=== PATIENT | male | born 1960 | race Asian ===

== ENCOUNTER 2022-02-26 11:20 | Emergency (ER) | payer OTHER, SELFPAY ==
[2022-02-26 11:29] VITALS: BP 141/74; PULSE 80; RESP 18; TEMP 36.2; O2SAT 99; BMI 23.6
[2022-02-26 12:07] LABS: Add Manual Diff / Slide Review NO; Basophils Absolute Auto 0 /uL (0-100); Basophils Percent Auto 0.3 % (0-2); Eosinophils Absolute Auto 0 /uL (0-450); Eosinophils Percent Auto 0.3 % (2-4); Hematocrit 38.3 % (41-53); Hemoglobin 12.8 g/dL (13.5-17.5); Lymphocytes Absolute Auto 700 /uL (1100-4500); Lymphocytes Percent Auto 8.6 % (25-40); Mean Corpuscular HGB Conc 33.3 % (30-36); Mean Corpuscular Hemoglobin 26.6 PG (26-34); Monocytes Absolute Auto 900 /uL (0-900); Monocytes Percent Auto 11.8 % (3-14); Neutrophils Absolute Auto 6100 /uL (1500-7000); Platelet Count 198 X10^3/uL (150-400); Red Blood Cell Count 4.79 X10^6/uL (4.5-5.9); White Blood Cell Count 7.7 X10^3/uL (4.5-11.0)
[2022-02-26 12:18] LABS: Alanine Aminotransferase 20 IU/L (<50); Albumin 4.2 g/dL (3.5-5.0); Albumin Globulin Ratio 1.4 (1.0-2.8); Alkaline Phosphatase 56 U/L (38-126); Aspartate Aminotransferase 21 IU/L (17-59); BUN Creatinine Ratio 12.2 (6-22); Bilirubin Total 0.4 mg/dL (0.2-1.3); Blood Urea Nitrogen 11 mg/dL (9-20); Calcium 8.4 mg/dL (8.4-10.2); Carbon Dioxide 27 mmol/L (22-32); Chloride 97 mmol/L (98-107); Creatine Kinase 104 U/L (55-170); Estimated Glomerular Filt Rate > 60 mL/min (>60); Glucose 135 mg/dL (70-100); HEMOLYSIS < 15 (0-50); Lipase 58 U/L (23-300); Potassium 3.9 mmol/L (3.4-5.1); Sodium 133 mmol/L (137-145); Total Protein 7.2 g/dL (6.3-8.2)
[2022-02-26 12:30] LABS: Troponin I < 0.012 ng/mL (0.01-0.034)
--- NOTE | 2022-02-26 12:32 | DI.RAD.S_ITS ---
PROCEDURE: XR CHEST 1V INDICATIONS: covid positive TECHNIQUE: One view of the chest was acquired. COMPARISON: None. FINDINGS: Surgical changes and devices: None. Lungs and pleura: Lungs are clear. No pleural effusions or pneumothorax. Mediastinum: Mediastinal contours appear normal. Heart size is normal. Bones and chest wall: No suspicious bony lesions. Overlying soft tissues appear unremarkable. IMPRESSION: No acute cardiopulmonary disease. Dictated by: Melly Sidhu M.D. on 02/26/2022 at 14:28 Approved by: Melly Sidhu M.D. on 02/26/2022 at 14:28
[2022-02-26 12:33] LABS: CKMB % Relative Index 0.7 % (1.5-5.0); Creatine Kinase MB 0.75 ng/mL (<2.37)
[2022-02-26 13:26] VITALS: BP 112/71; PULSE 65; RESP 16; O2SAT 98
--- NOTE | 2022-02-26 13:58 | ED.CHESTPAIN ---
HPI - Chest Pain <SMILEY Camp - Last Filed: 02/26/22 14:50> General Chief Complaint: Chest Pain Stated Complaint: Chest pain- COVID+ type 2 diabetic Time Seen by Provider: 02/26/22 13:34 Source: patient Mode of arrival: Ambulatory History of Present Illness HPI narrative: This is a 61-year-old male who presents to the emergency department on day three of COVID symptoms who tested positive yesterday and this morning while he was sitting in bed experience left-sided upper chest pain which he describes as pressure. He states that after 1 hour it went away. He denies any associated symptoms like shortness of breath, weakness, arm pain, diaphoresis, nausea vomiting, palpitations, radiation of pain, chest tightness or other. He endorses having normal COVID symptoms including a sore throat, muscle aches, fatigue, has been taking Tylenol every 6 hours for his pain and fever. He denies any history of COPD, smoking, asthma, denies being on any antihypertensives, states that his hemoglobin A1c was elevated but he is not on any glycemic control medications, endorses a history of hyperlipidemia and he had a tele doc visit this morning who encourage patient to come to the emergency department due to this left-sided upper chest pain and have this evaluated. Patient denies any sensation of a racing heart, states that he has a little bit of chest tightness when he takes a deep breath but otherwise does not have any chest pain right now, no pressure, no nausea vomiting, or any other cardio respiratory symptoms. Review of Systems <SMILEY Camp - Last Filed: 02/26/22 14:50> Review of Systems Narrative: General: States that he has been hot and cold but has been taking Tylenol every 6 hours, Head/Neck: denies headache, neck pain Eyes: denies visual changes, eye pain Cardio: denies chest pain currently, endorses chest pressure earlier today, denies any edema, palpitations Respiratory: denies shortness of breath, cough or shortness of breath with exertion GI: denies abdominal pain, nausea, vomiting, or diarrhea : denies dysuria, hematuria or flank pain MSK: denies new joint pain, muscle weakness or swelling Skin: denies rash, itching or wound Neuro: denies numbness, tingling, dizziness Patient History <SMILEY Camp - Last Filed: 02/26/22 14:50> Social History Smoking Status: Former smoker Smoking Status: Former smoker Substance Use Type: does not use Exam <SMILEY Camp - Last Filed: 02/26/22 14:50> Narrative Exam Narrative: Independently reviewed vitals signs and nursing notes. General: Awake, alert, nontoxic, no cardiorespiratory distress Head/Neck: Atraumatic, neck supple Eyes: EOMI, conjunctiva normal Nose: nares patent, no rhinorrhea Mouth/Throat: moist mucus membranes Cardio: Regular rate and rhythm, S1-S2 without murmur, no peripheral edema, without tachycardia Respiratory: respirations unlabored without wheezing, stridor, or rales. No retractions, hypoxia or tachypnea GI: Abdomen soft, nontender to palpation x4 quadrants, no guarding or rebound tenderness MSK: Moves all extremities, neurovascularly intact, range of motion without deficit Skin: Normal capillary refill, no rash Neuro: Normal speech and cognition, normal gait Initial Vital Signs Initial Vital Signs: Vital Signs Temperature 97.1 F L 02/26/22 11:29 Pulse Rate 80 02/26/22 11:29 Respiratory Rate 18 02/26/22 11:29 Blood Pressure 141/74 H 02/26/22 11:29 Pulse Oximetry 99 02/26/22 11:29 Oxygen Delivery Method 02/26/22 11:29 <Carlton Lin MD - Last Filed: 03/06/22 03:39> Initial Vital Signs Initial Vital Signs: Vital Signs Temperature 97.1 F L 02/26/22 11:29 Pulse Rate 80 02/26/22 11:29 Respiratory Rate 18 02/26/22 11:29 Blood Pressure 141/74 H 02/26/22 11:29 Pulse Oximetry 99 02/26/22 11:29 Oxygen Delivery Method 02/26/22 11:29 Scores <SMILEY Camp - Last Filed: 02/26/22 14:50> HEART Score Heart Score history: Slightly Suspicious Heart Score EKG: Normal Heart Score Age: 45-64 years old Heart Score risk factors: 1-2 risk factors Heart Score troponin: < or = to normal limit Heart Score Total: 2 <Carlton Lin MD - Last Filed: 03/06/22 03:39> HEART Score Heart Score Total: 2 Course <SMILEY Camp - Last Filed: 02/26/22 14:50> Orders Ordered: ED Orders 02/26/22 11:37 EKG-12 Lead Stat 02/26/22 12:01 Complete Blood Count AUTO DIFF Stat Comprehensive Metabolic Panel Stat Lipase Stat Magnesium Stat Troponin & CK Cardiac Panel Stat 02/26/22 12:32 XR chest 1V Stat Vital Signs Vital signs: Vital Signs - 8 hr 02/26/22 11:29 02/26/22 13:26 Temperature 97.1 F L Pulse Rate 80 65 Respiratory Rate 18 16 Blood Pressure 141/74 H 112/71 Pulse Oximetry 99 98 Oxygen Delivery Method Room Air Room Air <Carlton Lin MD - Last Filed: 03/06/22 03:39> Orders Ordered: ED Orders 02/26/22 11:37 EKG-12 Lead Stat 02/26/22 12:01 Complete Blood Count AUTO DIFF Stat Comprehensive Metabolic Panel Stat Lipase Stat Magnesium Stat Troponin & CK Cardiac Panel Stat 02/26/22 12:32 XR chest 1V Stat Vital Signs Vital signs: Vital Signs - 8 hr 02/26/22 11:29 02/26/22 13:26 Temperature 97.1 F L Pulse Rate 80 65 Respiratory Rate 18 16 Blood Pressure 141/74 H 112/71 Pulse Oximetry 99 98 Oxygen Delivery Method Room Air Room Air MDM - Chest Pain <SMILEY Camp - Last Filed: 02/26/22 14:50> Lab Data Result diagrams: 02/26/22 12:01 02/26/22 12:01 Labs: Lab Results 02/26/22 02/26/22 Range/Units 12:01 12:01 WBC 7.7 (4.5-11.0) X10^3/uL RBC 4.79 (4.5-5.9) X10^6/uL Hgb 12.8 L (13.5-17.5) g/dL Hct 38.3 L (41-53) % MCV 80.0 (80-100) fL MCH 26.6 (26-34) PG MCHC 33.3 (30-36) % RDW 13.0 (11.6-14.8) % Plt Count 198 (150-400) X10^3/uL Neut % (Auto) 79.0 H (50-75) % Lymph % (Auto) 8.6 L (25-40) % [place] % (Auto) 11.8 (3-14) % Eos % (Auto) 0.3 L (2-4) % Baso % (Auto) 0.3 (0-2) % Neut # (Auto) 6100 (2621-7387) /uL Lymph # (Auto) 700 L (3605-3724) /uL [place] # (Auto) 900 (0-900) /uL Eos # (Auto) 0 (0-450) /uL Baso # (Auto) 0 (0-100) /uL Sodium 133 L (137-145) mmol/L Potassium 3.9 (3.4-5.1) mmol/L Chloride 97 L (98-107) mmol/L Carbon Dioxide 27 (22-32) mmol/L BUN 11 (9-20) mg/dL Creatinine 0.90 (0.66-1.25) mg/dL Estimated GFR > 60 (>60) mL/min BUN/Creatinine Ratio 12.2 (6-22) Glucose 135 H (70-100) mg/dL Calcium 8.4 (8.4-10.2) mg/dL Magnesium 2.0 (1.6-2.3) mg/dL Total Bilirubin 0.4 (0.2-1.3) mg/dL AST 21 (17-59) IU/L ALT 20 (<50) IU/L Alkaline Phosphatase 56 (38-126) U/L Total Creatine Kinase 104 (55-170) U/L CK-MB (CK-2) 0.75 (<2.37) ng/mL CK-MB (CK-2) Rel Index 0.7 L (1.5-5.0) % Troponin I < 0.012 (0.01-0.034) ng/mL Total Protein 7.2 (6.3-8.2) g/dL Albumin 4.2 (3.5-5.0) g/dL Globulin 3.0 (1.7-4.1) g/dL Albumin/Globulin Ratio 1.4 (1.0-2.8) Lipase 58 (23-300) U/L Imaging Data Chest x-ray: Radiologist's Impression: PROCEDURE:? XR CHEST 1V ? INDICATIONS:? covid positive ? TECHNIQUE:? One view of the chest was acquired.? ? COMPARISON:? None. ? FINDINGS:? ? Surgical changes and devices:? None.? ? Lungs and pleura:? Lungs are clear.? No pleural effusions or pneumothorax.? ? Mediastinum:? Mediastinal contours appear normal.? Heart size is normal.? ? Bones and chest wall:? No suspicious bony lesions.? Overlying soft tissues appear unremarkable.? ? IMPRESSION:? No acute cardiopulmonary disease. ? ? Dictated by: Melly Sidhu M.D. on 02/26/2022 at 14:28 ? ? Approved by: Melly Sidhu M.D. on 02/26/2022 at 14:28 ? ECG Data Interpretation: EKG independently reviewed by Dr. Lin reveals normal sinus rhythm at 71 bpm with regular axis and intervals. No STEMI, ST segment changes, arrhythmia, or acute ischemic changes. MDM Narrative Medical decision making narrative: This is a 61-year-old male on day three of COVID symptoms who tested positive on a home test yesterday and today emergency department who presents concern for left-sided chest pressure which started at rest this morning and lasted approximately 60 minutes but was not associated with any other symptoms. Patient denies any shortness of breath, any edema, palpitations, chest pain, nausea, vomiting, diarrhea, radiation of pain, back pain or any other symptoms. His EKG shows normal sinus rhythm without arrhythmia, ST changes, his lab work was unremarkable, his troponin was negative, no leukocytosis, no significant electrolyte abnormalities, lipase and liver enzymes were all within normal ranges. Patient does not appear dehydrated, he does not have any tachycardia, hypoxia, chest pain or pressure at this time, his heart score is two, relatively low risk with contributing history only including hyperlipidemia. Patient is looking for a primary care provider, he was given phone number to establish care with one of the [facility], patient was given strict return precautions for any worsening or return of this chest pain, especially if associated with another symptom. He is nontoxic appearing, satting 100% on room air without any distress, without shortness of breath, increased respiratory effort, tachypnea or fever. Multiple causes of chest pain considered including UT, PE, pneumothorax, pneumonia, aortic dissection, and pleurisy. Patient reports no radiation, no diaphoresis, no provocation with exertion, and no vomiting. Patient is appropriate and amenable to discharge home. Vital signs are stable on repeat examination is unremarkable. Patient has been informed of results. Patient has been given strict return to ER precautions for any new or worsening symptoms. Patient understands to follow up closely with outpatient providers as instructed. Patient understands plan and agrees to discharge home. All questions and concerns answered at this time. <Carlton Lin MD - Last Filed: 03/06/22 03:39> Lab Data Labs: Lab Results 02/26/22 02/26/22 Range/Units 12:01 12:01 WBC 7.7 (4.5-11.0) X10^3/uL RBC 4.79 (4.5-5.9) X10^6/uL Hgb 12.8 L (13.5-17.5) g/dL Hct 38.3 L (41-53) % MCV 80.0 (80-100) fL MCH 26.6 (26-34) PG MCHC 33.3 (30-36) % RDW 13.0 (11.6-14.8) % Plt Count 198 (150-400) X10^3/uL Neut % (Auto) 79.0 H (50-75) % Lymph % (Auto) 8.6 L (25-40) % [place] % (Auto) 11.8 (3-14) % Eos % (Auto) 0.3 L (2-4) % Baso % (Auto) 0.3 (0-2) % Neut # (Auto) 6100 (2959-6178) /uL Lymph # (Auto) 700 L (9158-6897) /uL [place] # (Auto) 900 (0-900) /uL Eos # (Auto) 0 (0-450) /uL Baso # (Auto) 0 (0-100) /uL Sodium 133 L (137-145) mmol/L Potassium 3.9 (3.4-5.1) mmol/L Chloride 97 L (98-107) mmol/L Carbon Dioxide 27 (22-32) mmol/L BUN 11 (9-20) mg/dL Creatinine 0.90 (0.66-1.25) mg/dL Estimated GFR > 60 (>60) mL/min BUN/Creatinine Ratio 12.2 (6-22) Glucose 135 H (70-100) mg/dL Calcium 8.4 (8.4-10.2) mg/dL Magnesium 2.0 (1.6-2.3) mg/dL Total Bilirubin 0.4 (0.2-1.3) mg/dL AST 21 (17-59) IU/L ALT 20 (<50) IU/L Alkaline Phosphatase 56 (38-126) U/L Total Creatine Kinase 104 (55-170) U/L CK-MB (CK-2) 0.75 (<2.37) ng/mL CK-MB (CK-2) Rel Index 0.7 L (1.5-5.0) % Troponin I < 0.012 (0.01-0.034) ng/mL Total Protein 7.2 (6.3-8.2) g/dL Albumin 4.2 (3.5-5.0) g/dL Globulin 3.0 (1.7-4.1) g/dL Albumin/Globulin Ratio 1.4 (1.0-2.8) Lipase 58 (23-300) U/L Discharge Plan Departure Patient Disposition: Home Clinical Impression: COVID-19 Chest pain Qualifiers: Chest pain type: unspecified Qualified Code(s): R07.9 - Chest pain, unspecified Instructions: DI for Chest Pain, DI for COVID-19 (Suspected or Confirmed ) Activity Restrictions/Additional Instructions: *You have been diagnosed with COVID-19 chest pain which is not appear to be cardiac in nature. Your lab work is very reassuring that this is not a heart attack or any signs of a remote heart attack. Your electrolytes were in normal ranges, your blood counts were normal, and all of your organs appear to be functioning as they should. Your EKG does not show any heart strain, your chest x-ray does not show any heart or lung abnormalities. Please continue to stay hydrated, take Tylenol every 6 hours for fever and pain, you can take ibuprofen 600 mg every 6-8 hours with food and water to help treat your symptoms. Please return to the emergency department if you have chest pain, chest pressure, nausea, vomiting, left arm pain or left-sided numbness or tingling, have sweating associated with this pain or something that makes you feel like this is an emergency. Thank you for trusting us with your care, it was a pleasure to meet you. Please call the number listed below and make an appointment for a new patient. *What to do: *Please continue to take your regular medications as directed. [ ] New medication prescriptions sent to your pharmacy: [ ] [ ] New medication written as a paper prescription [ x] No new medications given *Please follow up with your primary care provider in 2-3 days, call for an appointment. Let them know you were seen in the Emergency Department and that we asked that you be seen for follow-up. We will electronically transmit a record of today's note if your PCP is in our system *If you do not have a primary care provider please contact [phone] to establish care with one of [facility] primary care providers. *Return to Emergency Department if you should have any new, worsening or concerning symptoms, such as [fever greater than 101F, chills, worsening pain, persistent vomiting or other bothersome symptoms] Visit Report Forms: Patient Portal/API <Carlton Lin MD - Last Filed: 03/06/22 03:39> Cosign ED Attending Pattature Attestation: I was immediately available in the department for consultation. This documentation has been reviewed and I agree with assessment and plan. Supervised by Carlton Lin MD
== END 2022-02-26 14:16 | disposition home or self-care (01) ==
PROVIDERS: Emergency Medicine; Emergency Provider Nurse Practitioner Critical Care Medicine
DX: U07.1 COVID-19 (principal); R07.9 Chest pain, unspecified
CPT/HCPCS: 36415; 71045; 80053; 82550; 82553; 83690; 83735; 84484; 85025; 93005; 93010; 99283; 99284

== ENCOUNTER → 2022-10-07 13:55 | Outpatient (CLI) | payer OTHER, SELFPAY ==
[2022-10-07 14:47] LABS: Cholesterol 219 mg/dL (140-199); HDL Cholesterol 38 mg/dL (40-60); LDL Cholesterol Calculated 143 mg/dL (<100); Triglycerides 188 mg/dL (35-150)
[2022-10-07 14:49] LABS: Hemoglobin A1C% w Est Avg Glu 5.8 % (4.0-6.0)
[2022-10-07 15:18] LABS: Prostate Specific Antigen Scrn 1.04 ng/mL (0.1-4.0)
[2022-10-07 15:19] LABS: Creatinine Urine Random 74.5 mg/dL
[2022-10-07 15:23] LABS: Microalbumi Creatinin Ratio Ur 24.1 ug/mg CR (<30); Microalbumin Urine Random 1.8 mg/dL (0-1.6)
[2022-10-09 16:29] LABS: Hep C Virus Ab w/Reflex Quant NEGATIVE s/c (NEGATIVE)
== END ==
PROVIDERS: PCP Student in an Organized Health Care Education/Training Program; Referring Provider Student in an Organized Health Care Education/Training Program; Visit Provider Student in an Organized Health Care Education/Training Program
DX: Z11.59 Encounter for screening for other viral diseases (principal); R73.9 Hyperglycemia, unspecified; Z12.5 Encounter for screening for malignant neoplasm of prostate; Z13.220 Encounter for screening for lipoid disorders; R73.03 Prediabetes
CPT/HCPCS: 36415; 80061; 82043; 82570; 83036; 86803; G0103

== ENCOUNTER → 2024-01-11 09:17 | Outpatient (CLI) | payer OTHER, SELFPAY ==
[2024-01-11 10:24] LABS: Hemoglobin A1C% w Est Avg Glu 5.6 % (4.0-6.0)
[2024-01-11 10:33] LABS: Add Manual Diff / Slide Review NO; Basophils Absolute Auto 0 /uL (0-100); Basophils Percent Auto 0.7 % (0-2); Eosinophils Absolute Auto 100 /uL (0-450); Eosinophils Percent Auto 2.9 % (2-4); Hematocrit 40.6 % (41-53); Hemoglobin 13.6 g/dL (13.5-17.5); Lymphocytes Absolute Auto 1200 /uL (1100-4500); Lymphocytes Percent Auto 25.8 % (25-40); Mean Corpuscular HGB Conc 33.4 % (30-36); Mean Corpuscular Hemoglobin 26.5 PG (26-34); Mean Corpuscular Volume 79.5 fL (80-100); Monocytes Absolute Auto 400 /uL (0-900); Monocytes Percent Auto 8.3 % (3-14); Neutrophils Absolute Auto 3000 /uL (1500-7000); Neutrophils Percent Auto 62.3 % (50-75); Platelet Count 248 X10^3/uL (150-400); Red Blood Cell Count 5.11 X10^6/uL (4.5-5.9); Red Cell Distribution Width 13.4 % (11.6-14.8); White Blood Cell Count 4.8 X10^3/uL (4.5-11.0)
[2024-01-11 10:44] LABS: Creatinine Urine Random 94.22 mg/dL
[2024-01-11 10:48] LABS: Microalbumin Urine Random 1.4 mg/dL (0-1.6)
[2024-01-11 10:51] LABS: Alanine Aminotransferase 35 IU/L (<50); Albumin 4.5 g/dL (3.5-5.0); Albumin Globulin Ratio 1.9 (1.0-2.8); Alkaline Phosphatase 64 U/L (38-126); Aspartate Aminotransferase 28 IU/L (17-59); BUN Creatinine Ratio 14.1 (6-22); Bilirubin Total 0.5 mg/dL (0.2-1.3); Blood Urea Nitrogen 12 mg/dL (9-20); Calcium 8.9 mg/dL (8.4-10.2); Carbon Dioxide 30 mmol/L (22-32); Chloride 103 mmol/L (98-107); Cholesterol 185 mg/dL (140-199); Estimated Glomerular Filt Rate > 60 mL/min (>60); Globulin 2.4 g/dL (1.7-4.1); Glucose 92 mg/dL (80-110); HDL Cholesterol 41 mg/dL (40-60); HEMOLYSIS < 15 (0-50); LDL Cholesterol Calculated 122 mg/dL (<100); Potassium 4.8 mmol/L (3.4-5.1); Sodium 137 mmol/L (137-145); Total Protein 6.9 g/dL (6.3-8.2); Triglycerides 108 mg/dL (35-150)
[2024-01-11 11:17] LABS: Prostate Specific Antigen Scrn 0.849 ng/mL (0.1-4.0)
== END ==
PROVIDERS: PCP Family Medicine; Referring Provider Family Medicine; Visit Provider Family Medicine
DX: Z00.00 Encounter for general adult medical examination without abnormal findings (principal); E78.00 Pure hypercholesterolemia, unspecified; R73.03 Prediabetes; Z12.5 Encounter for screening for malignant neoplasm of prostate
CPT/HCPCS: 36415; 80053; 80061; 82043; 82570; 83036; 85025; G0103

== ENCOUNTER → 2025-01-14 11:45 | Outpatient (CLI) | payer OTHER, SELFPAY ==
[2025-01-14 13:04] LABS: Influenza A - CEPHEID Flu A NEGATIVE (NEGATIVE); Influenza B - CEPHEID Flu B NEGATIVE (NEGATIVE); Respiratory Syncytial Virus Negative (Negative)
[2025-01-14 13:05] LABS: COVID-19 CEPHEID 4-PLEX PCR Negative (Negative)
== END ==
PROVIDERS: PCP Family Medicine; Visit Provider Registered Nurse
DX: J02.9 Acute pharyngitis, unspecified (principal); R50.9 Fever, unspecified
CPT/HCPCS: 0241U; 87070

== ENCOUNTER → 2025-02-08 14:41 | Outpatient (CLI) | payer OTHER, SELFPAY ==
[2025-02-08 15:27] LABS: Hemoglobin 12.8 g/dL (13.5-17.5); Mean Corpuscular HGB Conc 33.6 % (30-36); Mean Corpuscular Hemoglobin 27.3 PG (26-34); Mean Corpuscular Volume 81.2 fL (80-100); Platelet Count 264 X10^3/uL (150-400); Red Blood Cell Count 4.69 X10^6/uL (4.5-5.9)
[2025-02-08 15:53] LABS: Alanine Aminotransferase 25 IU/L (<50); Albumin 4.4 g/dL (3.5-5.0); Albumin Globulin Ratio 1.6 (1.0-2.8); Alkaline Phosphatase 55 U/L (38-126); Aspartate Aminotransferase 25 IU/L (17-59); BUN Creatinine Ratio 17.3 (6-22); Bilirubin Total 0.3 mg/dL (0.2-1.3); Blood Urea Nitrogen 14 mg/dL (9-20); Calcium 9.5 mg/dL (8.4-10.2); Carbon Dioxide 31 mmol/L (22-32); Chloride 97 mmol/L (98-107); Cholesterol 202 mg/dL (140-199); Estimated Glomerular Filt Rate > 60 mL/min (>60); Globulin 2.7 g/dL (1.7-4.1); Glucose 113 mg/dL (70-99); HDL Cholesterol 41 mg/dL (40-60); HEMOLYSIS < 15 (0-50); LDL Cholesterol Calculated 128 mg/dL (<100); Potassium 4.8 mmol/L (3.4-5.1); Sodium 134 mmol/L (137-145); Total Protein 7.1 g/dL (6.3-8.2); Triglycerides 164 mg/dL (35-150)
[2025-02-08 16:26] LABS: Hemoglobin A1C% w Est Avg Glu 5.6 % (4.0-6.0)
== END ==
LOC: LAB 14:42
PROVIDERS: PCP Family Medicine; Referring Provider Family Medicine; Visit Provider Family Medicine
DX: E78.00 Pure hypercholesterolemia, unspecified (principal); R73.03 Prediabetes; R55 Syncope and collapse; Z00.00 Encounter for general adult medical examination without abnormal findings; I10 Essential (primary) hypertension
CPT/HCPCS: 80053; 80061; 83036; 85027